=== PATIENT | female | born 1980 | race Two or more races ===

== ENCOUNTER 2022-01-30 09:15 | Emergency (ER) | payer OTHER ==
[~2022-01-30] VITALS: Ht 157.5 cm; Wt 76.2 kg
[2022-01-30] MEDS ORDERED: ZYRTEC10 MG PO (09:35)
== END 2022-01-30 20:37 | disposition home or self-care (01) ==
LOC: ER 09:15
DX: S82.032A Displaced transverse fracture of left patella, initial encounter for closed fracture (principal); W18.30XA Fall on same level, unspecified, initial encounter; Y93.9 Activity, unspecified; Y92.9 Unspecified place or not applicable; Y99.9 Unspecified external cause status